=== PATIENT | male | born 1990 | race Two or more races ===

== ENCOUNTER 2022-02-18 21:39 | Emergency (ER) | payer OTHER ==
[~2022-02-18] VITALS: Ht 170.2 cm; Wt 68.0 kg
[2022-02-18 21:50] VITALS: BP 140/89
[2022-02-18] MEDS ORDERED: ACETAMINOPHEN 500 MG TAB PO ONE (23:15)
== END 2022-02-18 23:19 ==
LOC: ER 21:39
DX: S02.2XXA Fracture of nasal bones, initial encounter for closed fracture (principal); S00.83XA Contusion of other part of head, initial encounter; V47.5XXA Car driver injured in collision with fixed or stationary object in traffic accident, initial encounter; Y93.89 Activity, other specified; Y92.410 Unspecified street and highway as the place of occurrence of the external cause; Y99.8 Other external cause status
CPT/HCPCS: 70450; 70486; 72125